=== PATIENT | male | born 1965 | race Caucasian/White ===

== ENCOUNTER 2020-01-24 18:24 | Emergency (ER) | payer SELFPAY ==
[~2020-01-24] VITALS: Ht 182.9 cm; Wt 84.1 kg
[2020-01-24 18:27] VITALS: BP 135/84; Ht 182.9 cm; Wt 84.1 kg
[2020-01-24] MEDS ORDERED: KLONOPIN1 MG PO (18:28)
== END 2020-01-24 20:56 | disposition home or self-care (01) ==
LOC: D.ER 18:24
DX: F41.9 Anxiety disorder, unspecified (principal)